=== PATIENT | female | born 1995 | race Hispanic/Latino ===

== ENCOUNTER 2019-02-06 21:04 | Inpatient (IN) ==
--- NOTE | 2019-02-06 21:49 | PROVIDER DOCUMENTATION ---
This chart was entered by Cara Ladd Scribe, acting as scribe for Jose Kaur MD. HPI-Psychological Disorder - General Chief Complaint: Syncope Stated Complaint: PASSED OUT Time Seen by Provider: 02/06/19 21:27 Source: patient Allergies/Adverse Reactions: Patient Allergies Allergy/AdvReac Type Severity Reaction Status Date / Time No Known Allergies Allergy Verified 01/13/19 13:31 Home Medications: Home Medication List Medication Instructions Recorded Confirmed Last Taken Type Pnv with Ca,No.72/Iron/FA [Pnv 1 ea PO DAILY #30 tab 01/13/19 02/07/19 Unknown Rx Plus Multivit Tab] - History of Present Illness-Psych Nature of Presenting Problem: 23 yoHF, , currently 20 weeks , who presents w/ after drinking a unknown amount of nail iranian remover around [id number] to get some sleep. pt is approximately 20 weeks . pt is responsive, but keeping eye s closed. Denies vaginal bleeding, SROM, fever. Onset/Duration: reports: 4-6 hours ago Psychiatric Complaints: reports: suicidal ideation - Suicidal Ideation Suicidal Attempt Method: reports: Other (ingestion) Review of Systems - Adult - REVIEW OF SYSTEMS - ADULT Constitutional: reports: no symptoms reported. denies: fever, fatique, night sweats Eyes: reports: no symptoms reported Ears, Nose, Mouth & Throat: reports: no symptoms reported Cardiovascular: reports: no symptoms reported Respiratory: reports: no symptoms reported Gastrointestinal: reports: no symptoms reported Genitourinary: reports: no symptoms reported Musculoskeletal: reports: no symptoms reported Integumentary: reports: no symptoms reported Neurological: reports: no symptoms reported Psychiatric: reports: see HPI, suicidal thoughts. denies: alcohol/drug dependence, insomnia, panic attacks Endocrine: reports: no symptoms reported Hematologic/Lymphatic: reports: no symptoms reported Allergic/Immunologic: reports: no symptoms reported All Other Systems: Reviewed and Negative Past History - Adult - PAST MEDICAL HISTORY-ADULT Review of Records: reports: Old Records Reviewed, Nursing Assessment Review, Medications Reviewed, Social history reviewed & non-contributory. Major Childhood Illnesses: reports: denies history Cardiovascular: reports: denies history Respiratory: reports: denies history Gastrointestinal: reports: denies history Obstetrical/Gynecological: reports: denies history Genitourinary: reports: denies history Musculoskeletal: reports: denies history Neurological: reports: denies history Endocrine/Immune: reports: denies history Other Conditions: reports: denies history - PRIOR SURGERIES/PROCEDURES Surgical/Procedure History: reports: none - IMMUNIZATION STATUS Childhood Immunizations: See Nurse Assessment Flu Vaccine: See Nurse Assessment - FAMILY HISTORY Family History: reviewed, not pertinent - SOCIAL HISTORY Smoking: non-smoker Substance Use: none/never Physical Exam-Psych Focus - Physical Exam-Psych Initial Vital Signs Reviewed: Yes Appearance: neat, no apparent distress, no memory impairment, denies illness, slow to respond. negative: alert, anxious, combative, disheveled, mild distress Neurological: normal mood/affect, calm, oriented x 3 (pt oriented but limited to answering questions due to beuing wolof speaking), responds to pain, depressed affect. 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 negative: good eye contact, threatening eye contact, decreased rate of speech, increased rate of speech, belligerent Thoughts/Hallucinations: normal thought pattern, no apparent hallucination. negative: auditory hallucinations, tactile hallucinations, visual hallucinations HENMT: normocephalic/atraumatic, moist mucous membranes, normal ENT inspection Neck: non-tender, full range of motion, supple, normal inspection Respiratory: chest non-tender, lungs clear, normal breath sounds, no pleuratic chest pain, no respiratory distress, no accessory muscle use. negative: respiratory distress, decreased breath sounds, accessory muscle use Cardiovascular: normal peripheral pulses, regular rate, rhythm Abdominal Exam: normal bowel sounds, non tender, soft Lymphatic: no adenopathy Back Exam: normal inspection, no CVA tenderness, no vertebral tenderness Extremity: normal range of motion, non-tender, normal inspection Integumentary: normal color, normal turgor, warm/dry Progress - PLAN OF CARE/RESULTS Progress/Plan/Lab Results: Orders Category Date Time Status Admit - [facility] Routine AdmDCTranf 02/06/19 22:57 Active Activity - Strict Bedrest ORDERED Care 02/06/19 22:57 Active Cardiac Monitoring DIRECTED Care 02/06/19 21:39 Completed Heart Tones NOW Care 02/06/19 21:38 Completed Misc. NRSG Communication Order DIRECTED Care 02/06/19 21:39 Completed Neurological Check Q 4-HR ASSESS Care 02/06/19 22:58 Completed Nursing- Obtain EKG ONCE Care 02/06/19 21:58 Completed Orthostatic Vital Signs NOW Care 02/06/19 21:27 Completed Resuscitation Status Routine Care 02/06/19 22:57 Completed Urine Preg [ED: Urine Bedside] ORDERED Care 02/06/19 21:28 Completed Vital Signs Order Q 4-HR ASSESS Care 02/06/19 22:57 Active Z-Document. for Tele Applied ORDERED Care 02/06/19 22:58 Completed ABG [RESP] Routine Lab 02/06/19 21:20 Completed ABG [RESP] Routine Lab 02/07/19 00:00 Completed ACETAMINOPHEN [TDM] Stat Lab 02/06/19 21:10 Completed CBC WITH ELECTRONIC DIFF [HEME] Stat Lab 02/06/19 21:10 Completed CMP [COMPREHENSIVE METABOLIC PANEL] [CHEM] Stat Lab 02/06/19 21:10 Completed TEST-SERUM [PREG] Stat Lab 02/06/19 21:10 Completed SALICYLATES [TDM] Stat Lab 02/06/19 21:10 Completed URINE DRUG SCREEN PL Stat Lab 02/07/19 00:22 Completed 0.9% Sodium Chloride Inj [Ns] 1,000 ml Med 02/06/19 22:57 Discontinued IV 125 mls/hr 0.9% Sodium Chloride Inj [Ns] 1,000 ml Med 02/06/19 22:31 Discontinued IV 999 mls/hr Oxygen Device Stat Oth 02/06/19 22:06 Completed Telemetry [OM.EQ] Routine Oth 02/06/19 22:57 Active EKG [EKG] Stat Ther 02/06/19 21:58 Draft Transfer/Admit Order [TRANSFER] Routine Transfer 02/06/19 22:59 Completed Result Diagrams: 02/08/19 05:08 02/08/19 05:08 - EKG 1 Time of EKG reading by physician:: 21:27 EKG Read and Signed by:: Jose Kaur EKG Interpretation (*Must complete 3 of following elements*): Normal Rate: 72 Rhythm: NSR [place]: normal QRS: normal [place] Interval: normal ST Wave: normal - CONSULTS/PCP/HOSPITALIST Notification #1 *Consult/PCP/Hospitalist*: Dr. White, hospitalist Time Discussed: 22:35 Consult Disposition: Admit Departure - Departure Date of Disposition Decision: 02/07/19 Time of Disposition Decision: 00:56 DIAGNOSIS: Accidental overdose Qualifiers: Encounter type: initial encounter Qualified Code(s): T50.901A - Poisoning by unspecified drugs, medicaments and biological substances, accidental (unintentional), initial encounter Disposition: ADMITTED INPATIENT 09 Certified Medical Emergency: Emergent Condition: Stable - Critical Care Note This patient required my direct & personal management of CC.: No Attestation - Physician/ BENEDICTO Attestation Patient care was provided by Advanced Practice Provider:: No The physician spent face to face time with patient:: Yes Advanced Practice Provider documentation review:: Supervising physician onsite and consulted in the evaluation and care of this patient. The physician did have a face to face encounter with the patient. This chart was documented by the indicated scribe, (Cara Ladd Scribe) and accurately reflects the services I performed and decisions made by me, Jose Kaur MD, as attested by the provider's signature.
[2019-02-06 21:55] LABS: BASO# 0.02 X1000 (0.0-0.2); BASO% 0.2 % (0.0-0.8); EOS# 0.15 X1000 (0.0-0.7); EOS% 1.5 % (0.0-10.0); HEMATOCRIT 32.4 % (37.0-47.0); HEMOGLOBIN 10.9 g/dL (12.0-16.0); IMM GRAN# 0.08 X1000 (0.0-0.04); IMM GRAN% 0.8 % (0.0-0.5); LYMPH# 1.87 X1000 (1.2-3.4); LYMPH% 18.9 % (20.5-51.1); MCHC 33.6 g/dL (33-37); MCV 83.3 FL (81-99); MONO# 0.94 X1000 (0.11-0.59); MONO% 9.5 % (1.7-9.3); MPV 10.1 FL (7.4-10.4); NEUT# 6.81 X1000 (1.4-6.5); NEUT% 69.1 % (42.2-75.2); PLT 268 X1000 (130-400); RBC 3.89 XMIL (4.2-5.4); RDW 14.3 % (11.5-14.5); WBC 9.87 X1000 (4.8-10.8)
[2019-02-06 22:18] LABS: ACETAMINOPHEN < 1.2 ug/mL (10-30); AGAP 13; ALBUMIN 3.7 g/dL (3.5-5.0); ALKALINE PHOSPHATASE 74 U/L (32-104); BUN 6 mg/dL (8-22); CALCIUM 9.3 mg/dL (8.8-10.2); CHLORIDE 103 mmol/L (98-107); COSMO 273; CREATININE 0.5 mg/dL (0.5-0.9); ESTIMATED GFR > 60; GLUCOSE 96 mg/dL (70-104); GOT 26 U/L (10-30); GPT 19 U/L (10-36); POTASSIUM 3.6 mmol/L (3.5-5.1); SALICYLATES < 3.00 mg/dL (3-10); SODIUM 138 mmol/L (136-145); TCO2 22 mmol/L (25-35); TOTAL PROTEIN 6.8 g/dL (6.3-8.3)
[2019-02-06] MEDS ORDERED: NS 1,000 ML IV ONE ×2 (22:31→22:57)
[2019-02-07 00:15] LABS: BLOOD TYPE ARTERIAL; SAMPLE BLOOD
[2019-02-07 00:16] LABS: BE -1.5 mmoll (-3.0-3.0); HCO3-(ACT) 23.8 mmoll (20.0-26.0); METHB 1.4 % (0.0-1.5); O2(CT) 14.2 mL/dL (15.0-23.0); O2HB 96.3 % (95.0-99.0); PCO2(98.6) 24 mmHg (35-45); PO2(98.6) 118 mmHg (60-100); SAO2 99.4 % (95.0-100.0); THB 10.3 g/dL (11.5-17.4); pH(98.6) 7.53 (7.35-7.45)
[2019-02-07 00:23] LABS: ALLEN TEST YES; MODALITY ROOM AIR
[2019-02-07 01:00] LABS: UR AMPHETAMINES QUAL NONE DETECTED (NONE DETECT); UR BARBITUATES QUAL NONE DETECTED (NONE DETECT)
[2019-02-07 01:01] LABS: UR BENZODIAZEPIN QUAL NONE DETECTED (NONE DETECT); UR CANNABINOIDS QUAL NONE DETECTED (NONE DETECT); UR COCAINE QUAL NONE DETECTED (NONE DETECT); UR METHADONE QUAL NONE DETECTED (NONE DETECT); UR METHAMPHETAMINE QUAL NONE DETECTED (NONE DETECT); UR OPIATES QUAL NONE DETECTED (NONE DETECT); UR OXYCODONE QUAL NONE DETECTED (NONE DETECT); UR PCP QUAL NONE DETECTED (NONE DETECT); UR PROPOXYPHENE QUAL NONE DETECTED (NONE DETECT); UR TCA QUAL NONE DETECTED (NONE DETECT)
[2019-02-07] MEDS ORDERED: NS 1,000 ML IV ONE ×2 (07:50→09:18)
[2019-02-07 07:52] LABS: BASO# 0.02 X1000 (0.0-0.2); BASO% 0.2 % (0.0-0.8); EOS# 0.13 X1000 (0.0-0.7); EOS% 1.6 % (0.0-10.0); HEMATOCRIT 27.7 % (37.0-47.0); HEMOGLOBIN 9.3 g/dL (12.0-16.0); IMM GRAN# 0.07 X1000 (0.0-0.04); IMM GRAN% 0.9 % (0.0-0.5); LYMPH# 1.98 X1000 (1.2-3.4); LYMPH% 24.7 % (20.5-51.1); MCH 28.5 PG (27-31); MCHC 33.6 g/dL (33-37); MONO% 8.7 % (1.7-9.3); MPV 9.4 FL (7.4-10.4); NEUT# 5.11 X1000 (1.4-6.5); NEUT% 63.9 % (42.2-75.2); PLT 217 X1000 (130-400); RBC 3.26 XMIL (4.2-5.4); RDW 14.4 % (11.5-14.5); WBC 8.01 X1000 (4.8-10.8)
[2019-02-07] MEDS ORDERED: NS 1,000 ML ONE (07:53)
[2019-02-07 07:59] LABS: BLOOD TYPE ARTERIAL; HCO3-(ACT) 23.4 mmoll (20.0-26.0); METHB 0.6 % (0.0-1.5); O2(CT) 13.2 mL/dL (15.0-23.0); PCO2(98.6) 33 mmHg (35-45); PO2(98.6) 94 mmHg (60-100); SAMPLE BLOOD; SAO2 99.9 % (95.0-100.0); THB 9.6 g/dL (11.5-17.4); pH(98.6) 7.43 (7.35-7.45)
[2019-02-07 08:04] LABS: MODALITY ROOM AIR
[2019-02-07 08:06] LABS: AGAP 8; ALBUMIN 3.1 g/dL (3.5-5.0); ALKALINE PHOSPHATASE 62 U/L (32-104); BUN 7 mg/dL (8-22); CALCIUM 8.1 mg/dL (8.8-10.2); CHLORIDE 108 mmol/L (98-107); COSMO 275; CREATININE 0.5 mg/dL (0.5-0.9); ESTIMATED GFR > 60; GLUCOSE 88 mg/dL (70-104); GOT 20 U/L (10-30); GPT 15 U/L (10-36); POTASSIUM 3.9 mmol/L (3.5-5.1); SODIUM 139 mmol/L (136-145); TCO2 24 mmol/L (25-35); TOTAL PROTEIN 5.6 g/dL (6.3-8.3)
--- NOTE | 2019-02-07 09:42 | EKG Report ---
Test Performed on : 02/06/2019 9:26:21 PM Test Reason : syncope Blood Pressure : / mmHG Vent. Rate : 072 BPM Atrial Rate : 072 BPM P-R Int : 158 ms QRS Dur : 086 ms QT Int : 370 ms P-R-T Axes : 061 053 040 degrees QTc Int : 405 ms Normal sinus rhythm. Normal ECG No previous ECGs available Unconfirmed Result
--- NOTE | 2019-02-07 09:58 | HISTORY AND PHYSICAL ---
PRIMARY CARE PHYSICIAN: None. CHIEF COMPLAINT: Passing out after drinking an unknown amount of nail st helenian remover around 6 to 7 p.m. last night, stating that she drank it to get some sleep, not to kill herself, but she is also noted to be 20 weeks . HISTORY OF PRESENTING ILLNESS: This is a 23-year-old female who presents to [facility] ER who is noted to be 20 weeks with a G3, P2, with her , after drinking an unknown amount of nail st helenian remover around 6 to 7 p.m. last night, stating that she was just trying to get some sleep. Workup showed on arrival her blood pressure was 110/67. Her urine drug screen was negative. Salicylate level was less than 3, acetaminophen level less than 1.2, but she was admitted for further evaluation and treatment. It is noted this morning she has had 1 L bolus of normal saline in the emergency room, 1 L at 125 mL an hour. This morning, her pressure dropped to 89/41, and she was given another liter bolus. Currently, her blood pressure, when the fluid stopped, went down again to 88/47, so we are going to give her another liter of fluids, then start her on normal saline at 150 mL an hour, and she was initially admitted to the medical unit. We are going to transfer her to the intensive care unit for further evaluation and treatment. PAST MEDICAL HISTORY: None. PAST SURGICAL HISTORY: None. FAMILY HISTORY: Reviewed and noncontributory. SOCIAL HISTORY: She currently lives with family. Denies any tobacco, alcohol or illicit drug use. ALLERGIES: She has no known drug allergies. HOME MEDICATIONS: She takes her vitamin p.o. daily. LABORATORY DATA: White blood cell count of 9.87, hemoglobin 10.9, hematocrit 32.4, platelets 268,000. ABG showed a pH of 7.53, pCO2 of 24, PO2 of 118, bicarb 23.8, and this was on room air. Sodium 138, potassium 3.6, chloride 103, CO2 of 22, BUN of 6, creatinine 0.5, glucose 96. Serum qualitative was positive. Urine drug screen showed none detected. Salicylate was less than 3. Acetaminophen less than 1.2. REVIEW OF SYSTEMS: She denied any fever, chills, blurred vision, dizziness, chest pain, coughing, shortness of breath. She does have some nausea. Denied any vomiting, constipation, diarrhea, burning or hurting with urination. PHYSICAL EXAMINATION: VITAL SIGNS: On arrival, she had a temperature of 98.8 degrees, pulse 72, respirations 18, blood pressure 110/67 saturating 99% on room air. She is noted to have some hypotensive events, and her latest one now is at 88/47. GENERAL: This is a 23-year-old female lying in the bed. HEENT: Normocephalic, atraumatic. Normal ENT inspection. Oropharynx and nares are clear. Pupils are equal, round, reactive to light and accommodation. Extraocular movements are intact. NECK: Normal inspection, normal range of motion. LUNGS: Clear to auscultation bilaterally with equal lung expansion and chest wall movement. HEART: Regular rate and rhythm. No murmurs, rubs, or gallops. ABDOMEN: Soft, nontender, nondistended. Bowel sounds are present x4 quadrants, and again she is noted to be 20 weeks . NEUROLOGICAL: The cranial nerves II through XII appear grossly intact. MUSCULOSKELETAL: She has 5/5 strength x4 in extremities. ASSESSMENT: 1. Overdose on nail st helenian remover, unintentional for a suicide attempt but intentional to go to sleep. 2. A 20-week gestation intrauterine . 3. Hypotension secondary to number 1. PLAN: She was initially admitted to the medical unit. Placed on neuro checks q.2 hours for 24 hours, telemetry, O2 per protocol. She is n.p.o. She has been given 2 L of normal saline boluses, another liter at 125 mL an hour. We are going to give her a another liter of normal saline now, transfer her to ICU. After this liter is completed, we will place her on normal saline at 125 mL an hour. We will recheck CBC and BMP in the a.m. We will do heart tones q.12 and further orders after seen by attending. Dictated by JONNY Vaughn for Lio White MD cc: JONNY Vaughn MD
[2019-02-07] MEDS ORDERED: ZOFRAN IV PRN (10:30)
[2019-02-07] MEDS: NS 1,000 ML IV SCH ×2 (10:54→20:00)
--- NOTE | 2019-02-07 15:45 | PROGRESS NOTE ---
DATE: 02/07/2019 Patient apparently ingested an unknown amount of nail sammarinese remover, stating that she wanted to sleep. She is approximately 20 weeks . We are going to admit her to the hospital and place her in the ICU. Blood pressures have been slightly low, in the 80s and 90s systolic. There is a language barrier. We have attempted to communicate. She appears to be denying any suicidal ideations, although it certainly would appear that was the intent with drinking nail sammarinese remover. cc: Lio White MD
[2019-02-08] MEDS: NS 1,000 ML IV SCH ×3 (03:54→19:54)
[2019-02-08 06:13] LABS: HEMATOCRIT 26.6 % (37.0-47.0); HEMOGLOBIN 8.6 g/dL (12.0-16.0); LYMPH% 34.8 % (20.5-51.1); MCH 27.7 PG (27-31); MCHC 32.3 g/dL (33-37); MCV 85.5 FL (81-99); MONO% 9.9 % (1.7-9.3); NEUT% 50.4 % (42.2-75.2); PLT 209 X1000 (130-400); RBC 3.11 XMIL (4.2-5.4); RDW 14.5 % (11.5-14.5)
[2019-02-08 06:14] LABS: BASO# 0.02 X1000 (0.0-0.2); BASO% 0.3 % (0.0-0.8); EOS# 0.28 X1000 (0.0-0.7); EOS% 3.6 % (0.0-10.0); IMM GRAN# 0.08 X1000 (0.0-0.04); LYMPH# 2.68 X1000 (1.2-3.4); MONO# 0.76 X1000 (0.11-0.59); NEUT# 3.88 X1000 (1.4-6.5)
[2019-02-08 06:37] LABS: AGAP 9; BUN 6 mg/dL (8-22); CALCIUM 7.4 mg/dL (8.8-10.2); CHLORIDE 108 mmol/L (98-107); COSMO 272; CREATININE 0.4 mg/dL (0.5-0.9); ESTIMATED GFR > 60; GLUCOSE 83 mg/dL (70-104); POTASSIUM 3.6 mmol/L (3.5-5.1); SODIUM 138 mmol/L (136-145); TCO2 21 mmol/L (25-35)
[2019-02-08] MEDS: PRECARE PO SCH (08:51)
[2019-02-09] MEDS: NS 1,000 ML IV SCH (04:00)
--- NOTE | 2019-02-09 06:59 | DISCHARGE SUMMARY ---
ADMISSION DATE: 02/07/2019 DISCHARGE DATE: 02/08/2019 The patient drank an unknown amount of nail kyrgyz remover. She denies that this was a suicide attempt, says she just wanted to sleep. Keyona Felix was consulted and did not feel as though she is actively suicidal. Therefore, she will be discharged home. Please see full note. cc: Lio White MD
[2019-02-09 08:05] VITALS: BP 97/46
[2019-02-09] MEDS: PRECARE PO SCH (08:06)
--- NOTE | 2019-02-09 13:31 | DISCHARGE SUMMARY ---
ADMISSION DATE: 02/07/2019 DISCHARGE DATE: 02/09/2019 DIAGNOSES: 1. Overdose on nail remover unintentional for suicide attempt. 2. Twenty week intrauterine . 3. Hypotension secondary to #1 resolved. 4. EKG revealed normal sinus rhythm at a rate of 72. HOSPITAL COURSE: Ms. Nance presented to the emergency room with her after drinking an unknown amount of nail wolof remover at about 6 or 7 p.m. the night prior. The patient stated that she was just trying to get sleep; she was not trying to kill herself. She was monitored in ICU, cleared medically. During this time, heart tones were evaluated by labor and delivery nurses every 12 hours. She was evaluated by Keyona Felix where she once again stated that she drank this to get some sleep, not to kill herself. According to Keyona Felix note, the patient stated "I drank some medicine, wanted to fall asleep." After she drank the medicine she got very sleepy. When she woke up this morning, and her throat hurt, she got very sleepy. She did not know the name of the medicine. She just described the bottle when she woke the next morning and her throat hurt she came for evaluation. After evaluation by Keyona Felix, they felt that the patient did not meet criteria and that her followup should be as recommended by Dr. White on discharge for medical care. Of note the patient does have a language barrier and the evaluation with Isidro was done using a language line, which is documented in the note from Keyona Felix. Poison Control was notified and did follow the patient throughout the admission. DISCHARGE VITAL SIGNS: Blood pressure is 97/46 with a heart rate of 78, respirations 20, temperature 98.4 degrees with room air saturations 98 to 100. DISCHARGE PHYSICAL EXAMINATION: Cardiovascular: Regular rate and rhythm. S1 and S2 appreciated. She has no lower extremity edema. Calves are nontender bilateral with peripheral pulses palpable x4 extremities. Pulmonary: Breath sounds are clear with no increased work of breathing noted. Chest rises and falls symmetric with respiration. Chest wall is nontender to palpation. Gastrointestinal: Abdomen is soft, nontender, nondistended. Again she is 20 weeks . Bowel sounds are present in all 4 quadrants. Neurologic: She is alert oriented x3. Cranial nerves 2-12 appear grossly intact. Skin: Warm and dry. FOLLOWUP: 1. She is to follow up with her primary care provider in the next 1 to 2 weeks. She needs to call and schedule an appointment. 2. Her powertrain calibration engineer she needs to call in the morning and schedule an appointment to be seen. DISPOSITION: She is being discharged home in stable condition with family members. TIME SPENT: This is a greater than 30 minute discharge. Dictated by JONNY Bright for Lio White MD cc: JONNY Bright MD
--- NOTE | 2019-02-09 17:52 | DISCHARGE SUMMARY ---
ADMISSION DATE: 02/07/2019 DISCHARGE DATE: 02/09/2019 ADDENDUM: Patient seen and examined by myself. Full note dictated and discussed with nurse practitioner. Patient will be discharged home. Please see full note. She has been cleared by Keyona Felix. cc: Lio White MD
== END 2019-02-09 09:05 | disposition home or self-care (01) | DRG 833 ==
LOC: P.MEDSURG 21:04 → P.ED 21:04 → OBSVTOIN 02-07 00:36 → P.ICU 02-07 10:45
PROVIDERS: ATTEND Family Medicine

== ENCOUNTER 2019-06-08 10:12 | Inpatient (IN) ==
[2019-06-08 11:26] LABS: URINE SOURCE VOIDED
[2019-06-08 11:34] LABS: BILIRUBIN URINE NEGATIVE (NEGATIVE); BLOOD URINE SMALL (NEGATIVE); COLOR YELLOW; GLUCOSE URINE NEGATIVE (NEGATIVE); KETONE URINE NEGATIVE (NEGATIVE); LEUKOCYTES URINE NEGATIVE (NEGATIVE); NITRITE URINE NEGATIVE (NEGATIVE); PROTEIN URINE TRACE mg/dL (NEGATIVE); SP GRAVITY URINE 1.021; TURBIDITY URINE CLEAR (CLEAR); UROBILINOGEN URINE NORMAL (NORMAL)
[2019-06-08 11:52] LABS: UR AMPHETAMINES QUAL NONE DETECTED (NONE DETECT); UR BARBITUATES QUAL NONE DETECTED (NONE DETECT); UR BENZODIAZEPIN QUAL NONE DETECTED (NONE DETECT); UR CANNABINOIDS QUAL NONE DETECTED (NONE DETECT); UR COCAINE QUAL NONE DETECTED (NONE DETECT); UR METHADONE QUAL NONE DETECTED (NONE DETECT); UR OPIATES QUAL NONE DETECTED (NONE DETECT); UR OXYCODONE QUAL NONE DETECTED (NONE DETECT); UR PCP QUAL NONE DETECTED (NONE DETECT)
[2019-06-08 12:35] LABS: BASO# 0.02 X1000 (0.0-0.2); BASO% 0.2 % (0.0-0.8); EOS# 0.04 X1000 (0.0-0.7); EOS% 0.3 % (0.0-10.0); HEMATOCRIT 33.1 % (37.0-47.0); HEMOGLOBIN 10.7 g/dL (12.0-16.0); IMM GRAN# 0.04 X1000 (0.0-0.04); IMM GRAN% 0.3 % (0.0-0.5); LYMPH% 10.1 % (20.5-51.1); MCH 25.6 PG (27-31); MCHC 32.3 g/dL (33-37); MCV 79.2 FL (81-99); MONO# 0.53 X1000 (0.11-0.59); MONO% 4.4 % (1.7-9.3); MPV 10.5 FL (7.4-10.4); NEUT% 84.7 % (42.2-75.2); PLT 233 X1000 (130-400); RBC 4.18 XMIL (4.2-5.4); RDW 14.2 % (11.5-14.5); WBC 11.93 X1000 (4.8-10.8)
[2019-06-09 05:36] LABS: BASO# 0.02 X1000 (0.0-0.2); BASO% 0.2 % (0.0-0.8); EOS# 0.16 X1000 (0.0-0.7); EOS% 1.6 % (0.0-10.0); HEMATOCRIT 31.7 % (37.0-47.0); HEMOGLOBIN 9.9 g/dL (12.0-16.0); IMM GRAN# 0.06 X1000 (0.0-0.04); IMM GRAN% 0.6 % (0.0-0.5); LYMPH# 2.74 X1000 (1.2-3.4); LYMPH% 27.8 % (20.5-51.1); MCHC 31.2 g/dL (33-37); MCV 80.1 FL (81-99); MONO# 0.92 X1000 (0.11-0.59); MONO% 9.3 % (1.7-9.3); MPV 10.6 FL (7.4-10.4); NEUT# 5.95 X1000 (1.4-6.5); NEUT% 60.5 % (42.2-75.2); PLT 221 X1000 (130-400); RBC 3.96 XMIL (4.2-5.4); RDW 14.1 % (11.5-14.5); WBC 9.85 X1000 (4.8-10.8)
[2019-06-10 07:37] VITALS: BP 104/56
== END 2019-06-10 12:50 | disposition home or self-care (01) | DRG 807 ==
LOC: EDSTATUS 10:12 → OPLD 10:12 → LD 10:14
PROVIDERS: ADMIT Obstetrics & Gynecology; ATTEND Obstetrics & Gynecology